=== PATIENT | male | born 1945 | race Caucasian/White ===

== ENCOUNTER → 2016-07-03 | Outpatient (CLI) | payer MEDICARE ==
[~2016-07-03] MED LIST: CARDIZEM CD 18180 MG PO; CYCLOPHOSPHAMIDE IV; DIGOX0.25 MG PO; DOXORUBICIN IV; FLECAINIDE ACET50 MG OR; LANOXIN 0.25M0.25 MG PO; LISINOPRIL10 MG PO; MECLIZINE HYDRO25 MG PO; MIRALAX(PO17 GM/1 PA PO; PHENERGAN 25MG.25 M1 PO; RANITIDINE 150150 MG PO; RANITIDINE HCL150 MG PO; RITUXAN100 MG/10 IV; TAMBOCOR PO; TAMSULOSIN HCL0.4 MG PO; TAMSULOSIN HYD0.4 M1 PO; TYLENOL W/CODEI1 TA2 PO; ZOFRAN ODT8 MG PO; [UNRECOGNIZED DRUG - OTHER] IV; [UNRECOGNIZED DRUG - OTHER] IV; [UNRECOGNIZED DRUG - OTHER] PO
--- NOTE | 2016-07-03 17:58 | RADIOLOGY REPORT PS360 ---
ECHO ADULT PROCEDURE: 2-D, M-mode and color Doppler study INDICATIONS FOR THE TEST: Chest pain____ COPD ____ Heart Murmur Tobacco Smoking Palpitations ____ Fatigue Syncope____ Edema Hypertension__x___Diabetes Mellitus Rheumatic Fever SOB DOE Obesity Hyperlipidemia____ Family History HD Additional History __AF__/ CAD PATIENT INFORMATION HEIGHT: 68IN WEIGHT:200 GENDER: Male B/P:130/70 2-D/M-MODE INTERPRETATION: 2-D MEASUREMENTS OBSERVED VALUES IN CMS Right Ventricular Dimension (RVDd) 2.6 Interventricular Septum (Thickness)(IVsd) 1.2 Left Ventricular Internal Dimensions(LVIDd) 4.7 Left Ventricular Posterior Wall (Thickness)(LVPWd) .9 Aortic Root 3.5 Aortic Cusp Separation 1.6 Left Atrial Dimensions (LAD) 3.9 2D 1. Technically difficult study because of the patient's factors and poor acoustic windows. 2. Qualitatively mildly enlarged left atrium, normal left ventricular size, left ventricular wall thickness is upper limit of the normal, visually estimated ejection fraction of 50-55% with no obvious regional wall motion abnormality however endocardial surfaces are poorly visualized. 3. The right atrium appears to be normal size, the right ventricle is qualitatively mildly enlarged with normal contractility. 4. The aortic valve is minimally thickened and fibrosed however leaflet, continue to display good mobility. 5. The mitral valve has mild mitral calcification, there is no mitral stenosis. 6. The tricuspid valve restructure normal. 7. The pulmonic valve is not well visualized. 8. No significant pericardial effusion noted DOPPLER INTERROGATION: 1. The aortic out flow velocities within normal range, there is no aortic stenosis or aortic insufficiency. 2. The mitral inflow velocities within normal range, there is no mitral stenosis, there is trace mitral regurgitation, the mitral inflow pattern and tissue Doppler is indicative of impaired LV relaxation. 3. There is no significant tricuspid regurgitation noted for the calculation of right ventricular systolic function. 4. There is mild pulmonic insufficiency seen. CONCLUSION: 1. Qualitatively mildly enlarged left atrium, normal left ventricular size, preserved left ventricular systolic function visually estimated ejection fraction of 50-55% with no obvious regional wall motion abnormality, endocardial surfaces are poorly visualized. Doppler evidence of impaired LV relaxation 2. Mildly enlarged right ventricle with normal contractility. 3. No significant pericardial effusion noted
== END ==
LOC: RT 09:00
DX: I48.91 Unspecified atrial fibrillation (principal); I10 Essential (primary) hypertension; G47.33 Obstructive sleep apnea (adult) (pediatric)

== ENCOUNTER → 2016-07-10 | Outpatient (CLI) | payer MEDICARE | LOC: RAD 16:12 | DX: I48.91 Unspecified atrial fibrillation (principal); I10 Essential (primary) hypertension; G47.33 Obstructive sleep apnea (adult) (pediatric) | CPT/HCPCS: G0399-TC ==

== ENCOUNTER → 2017-03-01 | Outpatient (CLI) | payer MEDICARE ==
[2017-03-01 10:20] LABS: BUN 18 mg/dL (7-18)
[2017-03-01 10:41] LABS: GFR (ESTIMATED) 66 ML/MIN (>60)
== END ==
LOC: LAB 08:08
PROVIDERS: Family Medicine Geriatric Medicine
DX: E78.2 Mixed hyperlipidemia (principal); I10 Essential (primary) hypertension